=== PATIENT | female | born 1995 | race American Indian/Alaskan Native ===

== ENCOUNTER 2021-02-28 13:01 | Outpatient (CLI) | payer MEDICAID ==
[2021-02-28 13:29] VITALS: BP 117/58
[2021-02-28] MEDS ORDERED: LACTATED RINGERS 1,000 ML IV ONE (13:31)
[2021-02-28 14:47] LABS: Bilirubin,Urine NEG (Negative); Blood,Urine NEG (Negative); Color,Urine Yellow (Yellow); Hyaline Casts,Urine 1 /LPF; Mucus,Urine FEW /HPF; Protein,Urine <15 mg/dL mg/dL (Negative); Urobilinogen,Urine < 2.0 mg/dL (<2.0)
--- NOTE | 2021-02-28 15:43 | Ultrasound Report ---
ULTRASOUND BIOPHYSICAL PROFILE ULTRASOUND OB LIMITED INDICATION: hx abruption TECHNIQUE: Transabdominal ultrasound imaging. COMPARISON: None FINDINGS: breathing movement = 2 Gross body movement = 2 tone = 2 Qualitative amniotic fluid volume = 2 Total biophysical score = 8/8 Amniotic fluid index is 12.4 cm. Presentation is cephalic. heart rate is 129 bpm beats per minute. The placenta is anterior, grade 1. IMPRESSION: biophysical profile equals 8/8. Signer Name: Emiliano Whitman Jr, MD Signed: 02/28/2021 3:39 PM Workstation Name: [id number]
== END 2021-02-28 15:15 | disposition home or self-care (01) ==
LOC: TRG 13:01 → APU 13:02 → TRG 15:15
PROVIDERS: ATTEND Obstetrics & Gynecology
DX: Z34.93 Encounter for supervision of normal pregnancy, unspecified, third trimester (principal); Z3A.31 31 weeks gestation of pregnancy
CPT/HCPCS: 59025; 76815; 76819; 81001

== ENCOUNTER 2021-04-11 10:41 | Outpatient (CLI) | payer MEDICAID ==
[2021-04-11 11:50] VITALS: BP 117/72
== END 2021-04-11 12:27 | disposition home or self-care (01) ==
LOC: TRG 10:41
PROVIDERS: ATTEND Obstetrics & Gynecology
DX: Z34.93 Encounter for supervision of normal pregnancy, unspecified, third trimester (principal); Z3A.37 37 weeks gestation of pregnancy
CPT/HCPCS: 59025

== ENCOUNTER 2021-04-11 16:35 | Inpatient (IN) | payer MEDICAID ==
[2021-04-11] MEDS ORDERED: AMPICILLIN/NS 2 GM/100 ML 2 GM/100 ML BAG IV ONE ×2 (17:41→17:50)
[2021-04-11] MEDS ORDERED: ePHEDrine SULFATE 50 MG/1 ML INJ IV PRN ×2 (17:41→18:09)
[2021-04-11] MEDS ORDERED: miSOPROStol 200 MCG TAB PR PRN (17:41)
[2021-04-11] MEDS ORDERED: TERBUTALINE 1 MG/1 ML INJ SUB-Q PRN (17:41)
[2021-04-11] MEDS ORDERED: MINERAL OIL 30 ML ORAL LIQD PO PRN (17:41)
[2021-04-11] MEDS ORDERED: OXYTOCIN 10 UNIT/1 ML INJ IM PRN (17:41)
[2021-04-11] MEDS ORDERED: METHYLERGONOVINE MALEATE 0.2 MG/ML VIAL IM PRN (17:41)
[2021-04-11] MEDS ORDERED: LOPERAMIDE 2 MG CAP PO PRN (17:41)
[2021-04-11] MEDS ORDERED: CARBOPROST TROMETHAMINE 250 MCG/1 ML INJ IM PRN (17:41)
[2021-04-11] MEDS ORDERED: ACETAMINOPHEN 325 MG TAB PO PRN (17:41)
[2021-04-11] MEDS ORDERED: NALOXONE 0.4 MG/1 ML INJ IV PRN (17:41)
[2021-04-11] MEDS ORDERED: ONDANSETRON 4 MG/2 ML INJ IV PRN ×2 (17:41→22:02)
[2021-04-11] MEDS ORDERED: BUTORPHANOL 2 MG/1 ML INJ IV PRN (17:41)
[2021-04-11] MEDS ORDERED: fentaNYL 100 MCG/2 ML INJ IV PRN (17:41)
--- NOTE | 2021-04-11 17:41 | History and Physical Report ---
History of Present Illness Date of examination: 04/11/21 Date of admission: 04/11/21 Chief complaint: labor History of present illness: Pt presents in active labor with exam of /- as per drafter mechanical. pt has h/o stillbirth at term and is GBS positive. She has not other complications this . EDC Confirmation: 04/26/2021 Gestational Age: 9 weeks Past History : 3 Term Births: 1 Premature Births: 1 Living Children: 1 Para: 2 Mult. Births: 0 Prev : 0 Aborta: 0 Elect. Ab: 0 Spont. Ab: 0 Ectopics: 0 # 1 Delivery date: 2014 Weeks Gestation: 38 labor: no Delivery type: Delivery location: [facility] Sex: Male weight: 5# Comments: HTN # 2 Delivery date: 10/24/2017 Weeks Gestation: 35 Delivery type: Hours of labor: ? Delivery location: [facility] [facility] Sex: Male weight: 4 Comments: demise prior to delivery Past Medical History: Abnormal Pap Smear 2012 w/ colpo and bx headaches Asthma Past Surgical History: Negative Past Surgical History Family History Summary: Other Family Member - Has Family History of Hypertension - Entered On: 09/21/2020 General Comments - FH: Mother - DM No known family hx of cancer Social History: Patient is single Smoking History: Patient has never smoked. Past Medical History Surgery (Non-case investigator): Negative Past Surgical History Abnormal PAP: positive, 2012 NORMA Exposure: negative Infertility: negative Uterine Anomaly: negative Uterine Surgery (not C/S): negative Other Gynecologic Problems: negative Social Hx: Patient is single Smoking History: Patient has never smoked. Infection History Hx of STD: chlamydia HIV Risk Eval: no Hepatitis B Risk Eval: low risk Personal hx. of genital herpes: no Genetic History Congenital Heart Defect: Mom: no Dad: no Saravanan Disease: Mom: no Dad: no Thalassemia Mom: no Dad: no Neural Tube Defect Mom: no Dad: no Down's Syndrome Mom: no Dad: no Abdiaziz-Sachs Mom: no Dad: no Sickle Cell Disease/Trait Mom: no Dad: no Hemophilia Mom: no Dad: no Muscular Dystrophy Mom: no Dad: no Cystic Fibrosis Mom: no Dad: no [place] Chorea Mom: no Dad: no Mental Retardation Mom: no Dad: no Fragile X Mom: no Dad: no Other Genetic/Chromosomal Disorder Mom: no Dad: no Child w/other defect Mom: no Dad: no Enviromental Exposures Xray Exposure: no Chemical/Other Exposure: no Exposure to Cat Liter: no Past History - Obstetrical History Expected Date of Delivery: 04/26/21 Actual Gestation: 37 Week(s) 6 Day(s) : 3 Medications and Allergies Allergies Allergy/AdvReac Type Severity Reaction Status Date / Time No Known Allergies Allergy Verified 02/28/21 13:31 - Vital Signs Vital signs: Vital Signs Pulse BP 85 132/80 04/11/21 17:01 04/11/21 17:01 Temp Pulse Resp BP Pulse Ox 99 H 132/80 94 04/11/21 17:19 04/11/21 17:01 04/11/21 17:19 Results All other labs normal.
[2021-04-11] MEDS ORDERED: LACTATED RINGERS 1,000 ML IV SCH (17:45)
[2021-04-11] MEDS ORDERED: OXYTOCIN DRIP 30 UNITS/500 ML BAG IV SCH ×3 (18:00→23:00)
[2021-04-11] MEDS ORDERED: LIDOCAINE (2%) 20 MG/1 ML VIAL 20 ML MDV INFILTRATI ONE (18:00)
[2021-04-11 18:05] LABS: Hematocrit 36.1 % (30.3-42.9); Hemoglobin 12.3 gm/dl (10.1-14.3); Mean Corpuscular HGB Conc 34 % (30-34); Mean Corpuscular Volume 88 fl (79-97); Platelet Count 290 K/mm3 (140-440); Red Blood Count 4.11 M/mm3 (3.65-5.03); Red Cell Distribution Width 14.5 % (13.2-15.2)
[2021-04-11] MEDS ORDERED: NALOXONE 2 MG/2 ML INJ IV PRN (18:09)
--- NOTE | 2021-04-11 18:10 | Anesthesia Consultation ---
Anesthesia Consult and Med Hx Date of service: 04/11/21 - Airway Anesthetic Teeth Evaluation: Good ROM Head & Neck: Adequate Mental/Hyoid Distance: Adequate Mallampati Class: Class II Intubation Access Assessment: Probably Good - Pulmonary Exam CTA: Yes - Cardiac Exam Cardiac Exam: RRR - Pre-Operative Health Status ASA Pre-Surgery Classification: ASA2 Proposed Anesthetic Plan: Epidural - Pulmonary Hx Asthma: Yes COPD: No Hx Pneumonia: No - Cardiovascular System Hx Hypertension: No - Central Nervous System Hx Seizures: No Hx Psychiatric Problems: No - Endocrine Hx Renal Disease: No Hx End Stage Renal Disease: No Hx Hypothyroidism: No Hx Hyperthyroidism: No - Hematic Hx Anemia: No Hx Sickle Cell Disease: No - Other Systems Hx Alcohol Use: Yes (SOCIAL)
--- NOTE | 2021-04-11 18:29 | Progress Note ---
Labor Epidural - Labor Epidural Start Time: 18:16 Stop Time: 18:21 Performed by:: ABIMBOLA CHUN Procedure: Patient is requesting epidural for labor pain. H&P, and labs reviewed. Procedure explained, questions answered, consent obtained. Patient in sitting position with blood pressure cuff and pulse ox on and working. Timeout performed immediately before start of procedure. Sterile chlorahexadine 0.5% prep/drape. 3 mL 1% lidocaine skin wheal at L[3]-L[4]. 18-gauge ClearMomentumtead epidural needle advanced to [id number] with saline at [7] cm. 27-gauge spinal needle advanced until clear, free-flowing CSF. Intrathecal dexmedetomidine [5] mcg administered and needle removed. Epidural catheter advanced to [12] cm, negative aspiration for blood and csf, negative test dose 3 ml 1.5% lidocaine with epinephrine. Sterile steri-strips and tegaderm applied, followed by tape reinforcement. Patient tolerated procedure well.
[2021-04-11] MEDS ORDERED: fentaNYL-BUPIV 2 MCG/ML-0.125% 200 MCG/100 ML BAG EPIDURAL SCH (19:00)
--- NOTE | 2021-04-11 20:38 | Progress Note ---
Assessment and Plan A: 26 y.o. @ term, active labor. Cervical exam 9.5/100/0. P: Continue with expectant management. Anticipate . Subjective - Subjective Date of service: 04/11/21 Principal diagnosis: IP @ term, active labor Patient reports: contractions (Pt feeling pain from contractions. ) Objective - Vital Signs Vital Signs: Vital Signs - 12hr 04/11/21 04/11/21 04/11/21 17:01 17:03 17:08 Temperature Pulse Rate 85 86 93 H Respiratory Rate Blood Pressure 132/80 O2 Sat by Pulse 99 99 Oximetry 04/11/21 04/11/21 04/11/21 17:11 17:13 17:18 Temperature Pulse Rate 107 H 102 H 99 H Respiratory Rate Blood Pressure O2 Sat by Pulse 89 100 94 Oximetry 04/11/21 04/11/21 04/11/21 17:19 17:40 18:15 Temperature 98.4 F Pulse Rate 99 H 100 H Respiratory 18 Rate Blood Pressure 136/92 O2 Sat by Pulse 94 Oximetry 04/11/21 04/11/21 04/11/21 18:17 18:19 18:21 Temperature Pulse Rate 100 H 96 H 85 Respiratory Rate Blood Pressure 137/86 145/88 132/71 O2 Sat by Pulse Oximetry 04/11/21 04/11/21 04/11/21 18:23 18:24 18:25 Temperature Pulse Rate 90 82 92 H Respiratory Rate Blood Pressure 131/65 125/63 O2 Sat by Pulse 100 Oximetry 04/11/21 04/11/21 04/11/21 18:27 18:28 18:29 Temperature Pulse Rate 84 82 85 Respiratory Rate Blood Pressure 128/72 124/64 O2 Sat by Pulse 100 Oximetry 04/11/21 04/11/21 04/11/21 18:31 18:33 18:35 Temperature Pulse Rate 87 85 84 Respiratory Rate Blood Pressure 120/63 114/59 115/61 O2 Sat by Pulse 99 Oximetry 04/11/21 04/11/21 04/11/21 18:37 18:38 18:43 Temperature Pulse Rate 90 96 H 88 Respiratory Rate Blood Pressure 117/65 O2 Sat by Pulse 100 100 Oximetry 04/11/21 04/11/21 04/11/21 18:44 18:47 18:49 Temperature Pulse Rate 86 88 83 Respiratory Rate Blood Pressure 118/64 116/63 O2 Sat by Pulse 100 Oximetry 04/11/21 04/11/21 04/11/21 18:52 18:54 18:59 Temperature Pulse Rate 90 82 86 Respiratory Rate Blood Pressure 112/61 112/64 O2 Sat by Pulse 99 100 Oximetry 04/11/21 04/11/21 04/11/21 19:04 19:07 19:09 Temperature Pulse Rate 71 64 69 Respiratory Rate Blood Pressure 125/71 123/66 O2 Sat by Pulse 99 99 Oximetry 04/11/21 04/11/21 04/11/21 19:13 19:14 19:19 Temperature Pulse Rate 65 67 65 Respiratory Rate Blood Pressure 119/58 O2 Sat by Pulse 100 99 Oximetry 04/11/21 04/11/21 04/11/21 19:24 19:29 19:34 Temperature Pulse Rate 72 79 79 Respiratory Rate Blood Pressure O2 Sat by Pulse 100 100 100 Oximetry 04/11/21 04/11/21 04/11/21 19:39 19:44 19:49 Temperature Pulse Rate 78 78 73 Respiratory Rate Blood Pressure 107/78 O2 Sat by Pulse 100 100 99 Oximetry 04/11/21 04/11/21 04/11/21 19:54 19:57 19:59 Temperature 98.9 F Pulse Rate 92 H 84 Respiratory 16 Rate Blood Pressure O2 Sat by Pulse 99 99 Oximetry 04/11/21 04/11/21 04/11/21 20:04 20:09 20:14 Temperature Pulse Rate 81 95 H 72 Respiratory Rate Blood Pressure O2 Sat by Pulse 99 100 99 Oximetry 04/11/21 04/11/21 04/11/21 20:19 20:24 20:29 Temperature Pulse Rate 92 H 101 H 96 H Respiratory Rate Blood Pressure O2 Sat by Pulse 99 100 100 Oximetry 04/11/21 20:34 Temperature Pulse Rate 109 H Respiratory Rate Blood Pressure O2 Sat by Pulse 99 Oximetry - Exam Breasts: deferred Cardiovascular: Regular rate Lungs: Normal air movement Abdomen: Present: normal appearance Vulva: both: normal FHR: category 1 Uterine Contraction Monitor Mode: External Cervical Dilatation: 9.5 Cervical Effacement Percentage: 100 station: 0 Uterine Contraction Pattern: Regular Uterine Tone Measurement Phase: Resting Uterine Contraction Intensity: Moderate - Labs Labs: Abnormal Labs 04/11/21 17:51 WBC 18.0 H Laboratory Results - last 24 hr 04/11/21 04/11/21 17:51 17:51 WBC 18.0 H RBC 4.11 Hgb 12.3 Hct 36.1 MCV 88 MCH 30 MCHC 34 RDW 14.5 Plt Count 290 Blood Type A POSITIVE Antibody Screen Negative
[2021-04-11] MEDS ORDERED: AMPICILLIN/NS 1 GM/50 ML 1 GM/50 ML BAG IV SCH (22:00)
[2021-04-11] MEDS ORDERED: MAGNESIUM HYDROXIDE (MOM) ORAL LIQD UDC PO PRN (22:02)
[2021-04-11] MEDS ORDERED: BENZOCAINE/MENTHOL 20/0.5% TOP SPRAY 56 GM TP PRN (22:02)
[2021-04-11] MEDS ORDERED: diphenhydrAMINE 25 MG CAP PO PRN (22:02)
[2021-04-11] MEDS ORDERED: oxyCODONE /ACETAMINOPHEN 5-325MG TAB PO PRN (22:02)
[2021-04-11] MEDS ORDERED: miSOPROStol 100 MCG TAB PR PRN (22:02)
[2021-04-11] MEDS ORDERED: LANOLIN/ZINC/DIMETHICONE (LANSINOH) 7 GM TP PRN ×2 (22:02)
[2021-04-11] MEDS ORDERED: WITCH HAZEL/ GLYCERIN PAD TP PRN (22:02)
[2021-04-11] MEDS ORDERED: PROMETHAZINE 25 MG TAB PO PRN (22:02)
[2021-04-11] MEDS ORDERED: PROMETHAZINE 25 MG RECT SUPP PR PRN (22:02)
--- NOTE | 2021-04-11 22:09 | Procedure Note ---
OB Delivery Note - Delivery Date of Delivery: 04/11/21 (GBS Positive, treated X1) Inspector And Mender: TIESHA VALDOVINOS Estimated blood loss: 200cc - Vaginal Delivery presentation: vertex Delivery position: OA Intrapartum events: meconium Delivery induction: none Delivery augmentation: rupture of membranes (Mec stained fluid) Delivery monitor: external FHT, external uterine Route of delivery: Delivery placenta: spontaneous Delivery cord: 3 umbilical vessels, other (Cord wrapped around arm X1) Episiotomy: none Delivery laceration: 1st degree (No repair needed. ) Anesthesia: local Delivery comments: of male infant. Cord around infants arm X1. Easily reduced once delivered. Infant to mother's abdomen for skin to skin. Cord clamped after cessation of pulse. Cut by grandmother of . Placenta delivered, complete, intact, 3 vessels noted. Perineum and vagina inspected, 1st degree laceration noted. Hemostatic, no repair needed. Fundus firm, minimal bleeding noted. Apgars 8,9. weight 6-7. Sponges and instruments counted with RN and correct. and mother left in stable condition in care of RN. - B at 1 minute: 8 at 5 minutes: 9 Infant Gender: Male (6-7)
[2021-04-11] MEDS ORDERED: ACETAMINOPHEN 500 MG TAB PO PRN (22:29)
[2021-04-11] MEDS: IBUPROFEN 800 MG TAB PO SCH (23:11)
[2021-04-12] MEDS: IBUPROFEN 800 MG TAB PO SCH ×3 (05:21→18:10)
--- NOTE | 2021-04-12 08:35 | Progress Note ---
Assessment and Plan patient resting in bed, no complaints. lochia scant, fundus firm, bottle feeding . VSSAF. H&H ordered for later this morning. - Patient Problems (1) Spontaneous vaginal delivery Current Visit: Yes Status: Acute Plan to address problem: continue pathway anticipate d/c home tomorrow Subjective - Subjective Date of service: 04/12/21 Principal diagnosis: day #1 s/p Patient reports: appetite normal, voiding normally, pain well controlled, ambulating normally, no dizzy ambulation, no nauseated : doing well, bottle feeding Objective - Vital Signs Latest vital signs: Vital Signs Temp Pulse Resp BP BP Pulse Ox Pulse Ox 04/12/21 08:05 97.8 F 94 H 18 118/63 98 04/12/21 04:24 98.6 F 62 18 114/56 96 04/12/21 01:50 97.9 F 81 15 108/65 100 100 04/12/21 01:13 71 98 04/12/21 01:08 81 98 04/12/21 01:03 80 98 04/12/21 00:58 77 98 04/12/21 00:53 75 98 04/12/21 00:48 72 111/58 99 04/12/21 00:43 75 98 04/12/21 00:38 74 98 04/12/21 00:33 69 98 04/12/21 00:28 75 98 04/12/21 00:23 70 99 04/12/21 00:18 93 H 105/59 100 04/12/21 00:13 71 99 04/12/21 00:08 72 99 04/12/21 00:04 70 98 04/11/21 23:58 70 99 04/11/21 23:53 79 100 04/11/21 23:48 66 116/56 99 04/11/21 23:43 73 98 04/11/21 23:38 65 99 04/11/21 23:33 74 99 04/11/21 23:28 75 99 04/11/21 23:24 77 100 04/11/21 23:19 73 100 04/11/21 23:18 74 112/63 04/11/21 23:13 74 99 04/11/21 23:08 81 100 04/11/21 23:04 69 100 04/11/21 22:59 87 99 04/11/21 22:54 64 100 04/11/21 22:49 74 100 04/11/21 22:48 68 108/59 04/11/21 22:44 67 100 04/11/21 22:39 68 100 04/11/21 22:34 68 100 04/11/21 22:29 72 100 04/11/21 22:24 81 100 04/11/21 22:19 69 100 04/11/21 22:14 81 100 04/11/21 22:09 89 100 04/11/21 22:04 79 100 04/11/21 22:02 68 127/57 04/11/21 21:59 82 100 04/11/21 21:54 86 100 04/11/21 21:49 83 100 04/11/21 21:44 90 99 04/11/21 21:39 85 100 04/11/21 21:34 81 100 04/11/21 21:29 88 100 04/11/21 21:24 98 H 100 04/11/21 21:19 114 H 100 04/11/21 21:18 103 H 113/58 04/11/21 21:14 125 H 100 04/11/21 21:09 123 H 100 04/11/21 21:04 125 H 100 04/11/21 20:59 119 H 100 04/11/21 20:54 94 H 100 04/11/21 20:49 88 125/58 99 04/11/21 20:47 67 L 04/11/21 20:44 98 H 100 04/11/21 20:39 101 H 100 04/11/21 20:34 109 H 99 04/11/21 20:29 96 H 100 04/11/21 20:24 101 H 100 04/11/21 20:19 92 H 99 04/11/21 20:14 72 99 04/11/21 20:09 95 H 100 04/11/21 20:04 81 99 04/11/21 19:59 84 99 04/11/21 19:57 98.9 F 16 04/11/21 19:54 92 H 99 04/11/21 19:49 73 107/78 99 04/11/21 19:44 78 100 04/11/21 19:39 78 100 04/11/21 19:34 79 100 04/11/21 19:29 79 100 04/11/21 19:24 72 100 04/11/21 19:19 65 99 04/11/21 19:14 67 100 04/11/21 19:13 65 119/58 04/11/21 19:09 69 99 04/11/21 19:07 64 123/66 04/11/21 19:04 71 125/71 99 04/11/21 18:59 86 112/64 100 04/11/21 18:54 82 99 04/11/21 18:52 90 112/61 04/11/21 18:49 83 100 04/11/21 18:47 88 116/63 04/11/21 18:44 86 118/64 04/11/21 18:43 88 100 04/11/21 18:38 96 H 100 04/11/21 18:37 90 117/65 04/11/21 18:35 84 115/61 04/11/21 18:33 85 114/59 99 04/11/21 18:31 87 120/63 04/11/21 18:29 85 124/64 04/11/21 18:28 82 100 04/11/21 18:27 84 128/72 04/11/21 18:25 92 H 125/63 04/11/21 18:24 82 131/65 04/11/21 18:23 90 100 04/11/21 18:21 85 132/71 04/11/21 18:19 96 H 145/88 04/11/21 18:17 100 H 137/86 04/11/21 18:15 100 H 136/92 04/11/21 17:40 98.4 F 18 04/11/21 17:19 99 H 94 04/11/21 17:18 99 H 94 04/11/21 17:13 102 H 100 04/11/21 17:11 107 H 89 04/11/21 17:08 93 H 99 04/11/21 17:03 86 99 04/11/21 17:01 85 132/80 Intake and Output 04/11/21 04/12/21 04/12/21 23:59 07:59 15:59 Intake Total 400 Output Total 900 900 Balance -900 -500 Intake: Oral 400 Output: Urine 900 900 Uretheral (Abreu) 900 Void 900 Other: Total, Intake Amount 200 Total, Output Amount 900 Weight 88.904 kg Estimated Blood Loss 200 - Exam Breasts: Present: normal Cardiovascular: Present: Regular rate Lungs: Present: Normal air movement Abdomen: Present: normal appearance, soft Vulva: both: normal Uterus: Present: normal, firm, fundal height below umbilicus Extremities: Present: normal - Labs Labs: Abnormal lab results 04/11/21 Range/Units 17:51 WBC 18.0 H (4.5-11.0) K/mm3
[2021-04-12 10:36] LABS: Hemoglobin 10.6 gm/dl (10.1-14.3)
[2021-04-12] MEDS: DOCUSATE SODIUM 100 MG CAP PO SCH ×2 (12:26→22:46)
[2021-04-12] MEDS: PRENATAL VIT27-FE FUMARATE-FOLIC ACID VIT TAB PO SCH (12:26)
--- NOTE | 2021-04-12 12:54 | Post Anesthesia Evaluation ---
- Post Anesthesia Evaluation Patient Participated: Yes Airway Patent: Yes Stable Respiratory Function: Yes Nausea/Vomiting: No Temp > 96.8F: Yes Pain Manageable: Yes Adequeate Hydration: Yes Anesthesia Complications: No Block Receding Appropriately: Yes
[2021-04-13] MEDS: IBUPROFEN 800 MG TAB PO SCH ×2 (00:05→06:29)
[2021-04-13] MEDS ORDERED: TETANUS,DIPH,PERTUSS(ACELL) VACCINE 0.5 ML SYRINGE IM ONE (06:00)
--- NOTE | 2021-04-13 07:52 | Discharge Summary ---
Providers - Providers Date of Admission: 04/11/21 21:13 Date of discharge: 04/13/21 (Pt desires discharge home. ) Attending physician: MARTINE SIU Primary care physician: MARTINE SIU Hospitalization Reason for admission: active labor Delivery: Episiotomy: none Laceration: 1st degree Other procedures: none complications: none Discharge diagnosis: IUP at term delivered baby: male Hospital course: S: Pt doing well. Ambulating, voiding, and passing flatus okay. BC: Depo. O: VSS. H/H 10.6/31.0. Fundus firm, vaginal bleeding minimal. A: 26 y.o. s/p , in good condition and can be discharged home. P: Discharge home with instructions. To schedule circumcision appointment in 1 week. To schedule visit in 4 weeks. Condition at discharge: Good Disposition: DC-01 TO HOME OR SELFCARE Plan - Discharge Medications Prescriptions: Lidocain2.5%/Prilocai2.5% [Emla] 1 applic TP ONCE #1 tube Ibuprofen [Motrin] 800 mg PO Q8HR PRN #30 tablet PRN Reason: Pain, Moderate (4-6) - Provider Discharge Summary Activity: routine, no sex for 6 weeks, no heavy lifting 4 weeks, no strenuous exercise Diet: routine Instructions: routine Additional instructions: [] Smoking cessation referral if applicable(refer to patient education folder for contact #) [] Refer to [facility]'s [facility] Booklet Call your doctor immediately for: * Fever > 100.5 * Heavy vaginal bleeding ( >1 pad per hour) * Severe persistent headache * Shortness of breath * Reddened, hot, painful area to leg or breast * Drainage or odor from incision. * Keep incision clean and dry at all times and follow doctor's instructions regarding bathing/showering Congratulations on the of your baby boy!! Please schedule his circumcision appointment in the office in 1 week. You have been prescribed EMLA cream for your son's circumcision. Please do not use this cream at home, but bring it with you to your son's circumcision appointment. Should you have any questions or concerns after discharge please do not hesitate to call the office at [phone]. - Follow up plan Follow up: MARTINE SIU MD [Primary Care Provider] - 7 Days
[2021-04-13] MEDS: DOCUSATE SODIUM 100 MG CAP PO SCH (09:50)
[2021-04-13] MEDS: PRENATAL VIT27-FE FUMARATE-FOLIC ACID VIT TAB PO SCH (09:50)
[2021-04-13] MEDS ORDERED: medroxyPROGESTERone ACETATE 150 MG/ML SYRINGE IM NR (09:54)
[2021-04-13 13:55] VITALS: BP 122/78
== END 2021-04-13 14:05 | disposition home or self-care (01) | DRG 775 ==
LOC: TRG 16:35 → APU 16:40 → LD 17:42 → TRG 20:09 → LD 21:13 → OB 04-12 01:40
PROVIDERS: ADMIT Obstetrics & Gynecology; ATTEND Obstetrics & Gynecology
PROC: 10E0XZZ Delivery of Products of Conception, External Approach (ICD-10-PCS; principal; 2021-04-11)
PROC: 3E0R3BZ Introduction of Anesthetic Agent into Spinal Canal, Percutaneous Approach (ICD-10-PCS; 2021-04-11)
PROC: 00HU33Z Insertion of Infusion Device into Spinal Canal, Percutaneous Approach (ICD-10-PCS; 2021-04-11)
PROC: 3E0234Z Introduction of Serum, Toxoid and Vaccine into Muscle, Percutaneous Approach (ICD-10-PCS; 2021-04-13)
DX: O77.0 Labor and delivery complicated by meconium in amniotic fluid (principal); O70.0 First degree perineal laceration during delivery; Z3A.37 37 weeks gestation of pregnancy; Z37.0 Single live birth; O99.52 Diseases of the respiratory system complicating childbirth; J45.909 Unspecified asthma, uncomplicated; Z20.822 Contact with and (suspected) exposure to COVID-19; Z23 Encounter for immunization; O69.82X0 Labor and delivery complicated by other cord entanglement, without compression, not applicable or unspecified; O99.824 Streptococcus B carrier state complicating childbirth
CPT/HCPCS: 36415; 59025; 85014; 85018; 85027; 86850; 86900; 86901; 90715; G0378; J0290; J7120; U0003